=== PATIENT | male | born 1945 | race Two or more races ===

== ENCOUNTER → 2018-06-13 | Outpatient (CLI) | payer MEDICARE, OTHER | END | disposition home or self-care (01) | LOC: RADPV 15:15 | PROVIDERS: ATTEND Orthopaedic Surgery | DX: M19.032 Primary osteoarthritis, left wrist (principal); M11.232 Other chondrocalcinosis, left wrist; M79.89 Other specified soft tissue disorders; I70.0 Atherosclerosis of aorta; M85.88 Other specified disorders of bone density and structure, other site ==

== ENCOUNTER → 2018-07-25 | Outpatient (CLI) | payer MEDICARE, OTHER | END | disposition home or self-care (01) | LOC: RADPV 08:42 | PROVIDERS: ATTEND Orthopaedic Surgery | DX: M19.032 Primary osteoarthritis, left wrist (principal); I70.0 Atherosclerosis of aorta; M11.232 Other chondrocalcinosis, left wrist ==